=== PATIENT | male | born 1990 | race African-American/Black ===

== ENCOUNTER 2017-02-19 09:10 | Emergency (ER) | payer OTHER ==
[~2017-02-19] VITALS: Ht 162.6 cm; Wt 64.9 kg
[2017-02-19 10:59] LABS: PLATELET COUNT 306 K/uL (142-355)
== END 2017-02-19 11:40 | disposition home or self-care (01) ==
LOC: ED 09:10
DX: J06.9 Acute upper respiratory infection, unspecified (principal)
CPT/HCPCS: 85027; 87081; 87804; 87880; 99283